=== PATIENT | male | born 1935 ===

== ENCOUNTER 2017-06-29 00:13 | Emergency (ER) | payer BC ==
[2017-06-29 00:19] VITALS: BP 151/83; PULSE 78; RESP 18; TEMP 97.5; O2SAT 99
[2017-06-29 01:17] LABS: BASO # 0.1 K/uL (0.0-0.2); BASO % 0.9 % (0.0-2.0); EOS # 0.1 K/uL (0.0-0.7); EOS % 1.4 % (0.0-4.0); HEMOGLOBIN 11.9 g/dL (12.0-18.0); LYMPH % 16.9 % (20.0-40.0); MEAN CELL VOLUME 100.3 fl (80.0-94.0); MEAN CORPUSCULAR HEMOGLOBIN 34.1 pg (27.0-31.0); MEAN PLATELET VOLUME 9.5 fl (7.2-11.7); MONO # 0.4 K/uL (0.0-0.8); MONO % 6.2 % (0.0-10.0); NEUT # 4.4 K/uL (1.8-7.0); NEUT % 74.6 % (50.0-75.0); RBC 3.5 Mil/uL (4.40-5.90); RED CELL DISTRIBUTION WIDTH 13.6 % (11.5-14.5); WHITE BLOOD COUNT 5.9 K/uL (4.8-10.8)
--- NOTE | 2017-06-29 01:22 | ED PDOC ---
HPI: Abdomen Time Seen by Provider: 06/29/17 00:23 Chief Complaint (Nursing): Abdominal Pain Chief Complaint (Provider): Abdominal Pain History Per: Patient History/Exam Limitations: no limitations Onset/Duration Of Symptoms: Hrs (x 2) Current Symptoms Are (Timing): Still Present Additional Complaint(s): 82 year old male with history of abdominal surgery. 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 Patient reports that pain usually resolved on its own. He ate shrimp amelia green sauce and developed abdominal pain shortly after associated with nausea. Upon arrival to the ED patient said the pain resolved. PMD: Dr. Jaylyn SHERIDAN Past Medical History Reviewed: Historical Data, Nursing Documentation, Vital Signs Vital Signs: Last Vital Signs Temp 97.5 F L 06/29/17 00:17 Pulse 78 06/29/17 00:17 Resp 18 06/29/17 00:17 BP 151/83 H 06/29/17 00:17 Pulse Ox 99 06/29/17 06:30 - Medical History PMH: No Chronic Diseases - Surgical History Other surgeries: abdominal surgery, hernia surgery of abdominal wall, partial colon resection years ago for mass primary biliary cirrhosis - Family History Family History: States: No Known Family Hx - Home Medications Home Medications: Ambulatory Orders Medication Instructions Recorded Esomeprazole Magnesium [Nexium] 20 mg PO QAM #30 ecc 06/29/17 - Allergies Allergies/Adverse Reactions: Allergies Allergy/AdvReac Type Severity Reaction Status Date / Time No Known Allergies Allergy Verified 06/29/17 00:17 Review of Systems ROS Statement: Except As Marked, All Systems Reviewed And Found Negative Gastrointestinal: Positive for: Nausea, Abdominal Pain Physical Exam - Reviewed Nursing Documentation Reviewed: Yes Vital Signs Reviewed: Yes - Physical Exam Appears: Positive for: Non-toxic, No Acute Distress Head Exam: Positive for: ATRAUMATIC, NORMOCEPHALIC Skin: Positive for: Normal Color, Warm, Dry Eye Exam: Positive for: EOMI, Normal appearance, PERRL Neck: Positive for: Normal, Painless ROM, Supple Cardiovascular/Chest: Positive for: Regular Rate, Rhythm. Negative for: Murmur Respiratory: Positive for: Normal Breath Sounds. Negative for: Respiratory Distress Gastrointestinal/Abdominal: Positive for: Normal Exam (well healed old scars to adominal area), Soft Extremity: Positive for: Normal ROM. Negative for: Deformity Neurologic/Psych: Positive for: Alert, Oriented. Negative for: Motor/Sensory Deficits - Laboratory Results Result Diagrams: 06/29/17 01:09 06/29/17 01:09 - ECG O2 Sat by Pulse Oximetry: 99 (RA) Pulse Ox Interpretation: Normal Medical Decision Making Medical Decision Making: Time: 00:24 Impression: 82 yea rold male with acute abdominal pain in setting of abdominal surgeries. Initial Plan: --Abd Pelvis IV Contrast CT --EKG --CMP --Lipase --Urine dip --CBC with differentials --PTT --Prothrombin Time --urinalysis Abdomen Pelvis CT FINDINGS: Lung bases: Unremarkable. No mass. No consolidation. ABDOMEN: Liver: 7 mm focal liver hypodensity that cannot be further characterized on the current examination. No mass. Gallbladder and bile ducts: Unremarkable. No calcified stones. No ductal dilation. Pancreas: Unremarkable. No mass. No ductal dilation. Spleen: Unremarkable. No splenomegaly. Adrenals: Unremarkable. No mass. Kidneys and ureters: There are bilateral renal cysts. No hydronephrosis. No follow-up is necessary. Stomach and bowel: Large hiatal hernia with intrathoracic stomach. Anastomotic sutures are present in the rectosigmoid colon. No mucosal thickening.There is no wall thickening or pericolonic stranding to suggest colitis. Appendix: No appendix is specifically identified. There is no evidence of fluid collections or inflammatory stranding in the right lower quadrant. PELVIS: Bladder: LEFT bladder diverticulum. Reproductive: Unremarkable as visualized. ABDOMEN and PELVIS: Intraperitoneal space: Unremarkable. No free air. No significant fluid collection. Bones/joints: Postsurgical changes in the RIGHT hip with dynamic screw in place. No acute fracture. No dislocation. Soft tissues: Unremarkable. Vasculature: The aorta demonstrates mild atherosclerotic calcification. No abdominal aortic aneurysm. Lymph nodes: Unremarkable. No enlarged lymph nodes. IMPRESSION: No acute intra-abdominal pelvic abnormality. Large hiatal hernia with intrathoracic stomach. 7 mm low-density liver lesion. No follow-up is necessary. Bilateral renal cysts. Bladder diverticulum Patient remains asymptomatic, He has elevated lipase levels but the CT results show no indication of pancreatitis on CT. Repeat Lipase lvels have been ordereed. Scribe Attestation: Documented by Arcelia Phillips acting as a scribe for Babar Arias MD, MD Scribe Attestation: All medical record entries made by the Scribe were at my direction and personally dictated by me. I have reviewed the chart and agree that the record accurately reflects my personal performance of the history, physical exam, medical decision making, and the department course for this patient. I have also personally directed, reviewed, and agree with the discharge instructions and disposition. Disposition - Clinical Impression Clinical Impression: Hiatal hernia, Abdominal pain - Disposition Disposition: Routine/Home Disposition Time: 06:15 Condition: STABLE Prescriptions: Esomeprazole Magnesium [Nexium] 20 mg PO QAM #30 ecc Instructions: Hiatal Hernia Forms: [employer] (Tajik) Print Language: SERBIAN
[2017-06-29 01:26] LABS: ALBUMIN 3.8 g/dL (3.5-5.0); ALT/SGPT 26 U/L (21-72); AST/SGOT 25 U/L (17-59); BLOOD UREA NITROGEN 37 mg/dl (9-20); CALCIUM 9.2 mg/dL (8.4-10.2); GFR AFRICAN-AMERICAN > 60; GFR NON-AFRICAN AMERICAN 58; LIPASE 1018 U/L (23-300)
[2017-06-29 01:27] LABS: INR 1.1 (0.9-1.2); PARTIAL THROMBOPLASTIN TIME 30.2 Seconds (25.6-37.1); PROTHROMBIN TIME 12.2 Seconds (9.8-13.1)
[2017-06-29] MEDS ORDERED: Sodium Chloride 0.9% 1,000 ML IV STA (01:28)
[2017-06-29 03:07] LABS: URINE BILIRUBIN NEGATIVE (NEGATIVE); URINE BLOOD NEGATIVE (NEGATIVE); URINE CLARITY CLEAR (Clear); URINE COLOR YELLOW (YELLOW); URINE GLUCOSE (UA) NEG (Normal); URINE LEUKOCYTE ESTERASE NEG Leu/uL (Negative); URINE PROTEIN 30 mg/dL (NEGATIVE); URINE UROBILINOGEN 0.2-1.0 mg/dL (0.2-1.0)
[2017-06-29] MEDS ORDERED: Magnesium Oxide 400 mg Tab UD PO STA (03:50)
[2017-06-29] MEDS ORDERED: Iohexol 300 50 ML ONE (04:14)
[2017-06-29] MEDS ORDERED: Sodium Chloride 0.9% 100 ML ONE (04:15)
--- NOTE | 2017-06-29 05:26 | CT ---
EXAM: CT Abdomen and Pelvis With Intravenous Contrast CLINICAL HISTORY: 82 years old, male; Pain; Abdominal pain; Acute; Additional info: Abd pain HX of colon surgery TECHNIQUE: Axial computed tomography images of the abdomen and pelvis with intravenous contrast. All CT scans at this facility use one or more dose reduction techniques, viz.: automated exposure control; ma/kV adjustment per patient size (including targeted exams where dose is matched to indication; i.e. head); or iterative reconstruction technique. Coronal and sagittal reformatted images were created and reviewed. CONTRAST: 95 mL of omnipaque 300 administered intravenously. COMPARISON: No relevant prior studies available. FINDINGS: Lung bases: Unremarkable. No mass. No consolidation. ABDOMEN: Liver: 7 mm focal liver hypodensity that cannot be further characterized on the current examination. No mass. Gallbladder and bile ducts: Unremarkable. No calcified stones. No ductal dilation. Pancreas: Unremarkable. No mass. No ductal dilation. Spleen: Unremarkable. No splenomegaly. Adrenals: Unremarkable. No mass. Kidneys and ureters: There are bilateral renal cysts. No hydronephrosis. No follow-up is necessary. Stomach and bowel: Large hiatal hernia with intrathoracic stomach. Anastomotic sutures are present in the rectosigmoid colon. No mucosal thickening.There is no wall thickening or pericolonic stranding to suggest colitis. Appendix: No appendix is specifically identified. There is no evidence of fluid collections or inflammatory stranding in the right lower quadrant. PELVIS: Bladder: LEFT bladder diverticulum. Reproductive: Unremarkable as visualized. ABDOMEN and PELVIS: Intraperitoneal space: Unremarkable. No free air. No significant fluid collection. Bones/joints: Postsurgical changes in the RIGHT hip with dynamic screw in place. No acute fracture. No dislocation. Soft tissues: Unremarkable. Vasculature: The aorta demonstrates mild atherosclerotic calcification. No abdominal aortic aneurysm. Lymph nodes: Unremarkable. No enlarged lymph nodes. IMPRESSION: No acute intra-abdominal pelvic abnormality. Large hiatal hernia with intrathoracic stomach. 7 mm low-density liver lesion. No follow-up is necessary. Bilateral renal cysts. Bladder diverticulum.
--- NOTE | 2017-06-29 09:19 | CARD ---
APPROVED REPORT EKG Measurement Heart [id number] <Conclusion> Sinus rhythm with 1st degree AV block Tall R in V1 suggests RV enlargement. Left axis deviation Abnormal ECG
== END 2017-06-29 06:24 | disposition home or self-care (01) ==
LOC: H.ER 00:13
DX: K44.9 Diaphragmatic hernia without obstruction or gangrene (principal); R10.9 Unspecified abdominal pain; K76.9 Liver disease, unspecified
CPT/HCPCS: 74177; 80053; 81003; 83690; 85025; 85610; 85730; 93005; 99283; J7040; Q9967